=== PATIENT | male | born 1980 | race African-American/Black ===

== ENCOUNTER 2019-01-12 16:08 | Emergency (ER) | payer OTHER ==
[~2019-01-12] VITALS: Ht 190.5 cm; Wt 111.6 kg
[2019-01-12 16:35] VITALS: Ht 190.5 cm; Wt 111.6 kg
[2019-01-12 19:48] VITALS: BP 131/83
== END 2019-01-12 19:48 | disposition home or self-care (01) ==
LOC: ED 16:08
DX: R42 Dizziness and giddiness (principal); S06.0X0A Concussion without loss of consciousness, initial encounter; V49.69XA Unspecified car occupant injured in collision with other motor vehicles in traffic accident, initial encounter; Y93.I9 Activity, other involving external motion; Y92.413 State road as the place of occurrence of the external cause; Y99.8 Other external cause status